=== PATIENT | female | born 1995 ===

== ENCOUNTER 2016-11-07 14:15 | Emergency (ER) | payer OTHER ==
[2016-11-07 14:16] VITALS: BMI 26.7
[2016-11-07 14:23] VITALS: BP 112/74; PULSE 79; RESP 18; TEMP 98.2; O2SAT 99
[2016-11-07 15:17] LABS: RBC URINE 21 /hpf (0-3); URINE BACTERIA RARE (<OCC); URINE BILIRUBIN NEGATIVE (NEGATIVE); URINE BLOOD 3+ (NEGATIVE); URINE COLOR Yellow (YELLOW); URINE GLUCOSE (UA) NORMAL (Normal); URINE KETONE NEGATIVE (NEGATIVE); URINE LEUKOCYTE ESTERASE TRACE Leu/uL (Negative); URINE PROTEIN NEGATIVE (NEGATIVE); URINE UROBILINOGEN NORMAL mg/dL (0.2-1.0); WBC URINE 1 /hpf (0-5)
--- NOTE | 2016-11-07 17:16 | C.PDOC ---
History Of Present Illness 21 year old female, with a Hx of UTI, presents to the ED c/o orange discharge that she feels is urinary in nature and suprapubic pain since yesterday. Patient denies nausea, vomiting, fever, chills, vaginal bleeding, or any other complaints. Chief Complaint (Nursing): Female Genitourinary History Per: Patient History/Exam Limitations: no limitations Onset/Duration Of Symptoms: Days Current Symptoms Are (Timing): Still Present Severity: Mild Associated Symptoms: denies: Fever, Chills, Nausea, Vomiting Past Medical History Reviewed: Historical Data, Nursing Documentation, Vital Signs Vital Signs: Last Vital Signs Temp 98.2 F 11/07/16 14:20 Pulse 79 11/07/16 14:20 Resp 18 11/07/16 14:20 BP 112/74 11/07/16 14:20 Pulse Ox 99 11/07/16 17:30 - Medical History PMH: Asthma Family History: States: Unknown Family Hx - Social History Hx Tobacco Use: No Hx Alcohol Use: Yes Hx Substance Use: No - Immunization History Hx Tetanus Toxoid Vaccination: Yes Hx Influenza Vaccination: Yes Hx Pneumococcal Vaccination: No Review Of Systems Except As Marked, All Systems Reviewed And Found Negative. Constitutional: Negative for: Fever, Chills Gastrointestinal: Negative for: Nausea, Vomiting Genitourinary: Positive for: Vaginal Discharge ([place] discharge), Other ( Suprapubic pain). Negative for: Vaginal Bleeding Physical Exam - Physical Exam Appears: Non-toxic, No Acute Distress Skin: Warm, Dry Head: Atraumatic, Normacephalic Eye(s): bilateral: Normal Inspection Throat: Normal, No Exudate Cardiovascular: Rhythm Regular, No Murmur Respiratory: Normal Breath Sounds, No Rales, No Rhonchi, No Wheezing Gastrointestinal/Abdominal: Soft, Tenderness (Mild suprapubic area tenderness) Neurological/Psych: Oriented x3, Normal Speech, Normal Cognition ED Course And Treatment O2 Sat by Pulse Oximetry: 99 (Room air) Pulse Ox Interpretation: Normal Medical Decision Making Medical Decision Making: Plans: -Urine labs -Reassess and disposition On reassessment, patient is resting comfortably, and is in no acute distress. Patient was instructed to follow up with physician/clinic in 1-2 days for further evaluation. Disposition - Disposition Referrals: [facility] Hali Otero, [Non-Staff] - Disposition: HOME/ ROUTINE Disposition Time: 15:40 Condition: GOOD Additional Instructions: Thank you for letting us take care of you today. Your provider was Dr. Matthews. You were treated for a urinary tract infection. The emergency medical care you received today was directed at your acute symptoms. If you were prescribed any medication, please fill it and take as directed. It may take several days for your symptoms to resolve. Return to the Emergency Department if your symptoms worsen, do not improve, or if you have any other problems. Please contact your doctor or call one of the physicians/clinics you have been referred to that are listed on the Patient Visit Information form that is included in your discharge packet. Bring any paperwork you were given at discharge with you along with any medications you are taking to your follow up visit. Our treatment cannot replace ongoing medical care by a primary care provider (PCP) outside of the emergency department. Thank you for allowing the [facility] team to be part of your care today. Follow up with your doctor in 3-4 days to be re-evaluated. Prescriptions: Sulfamethoxazole/Trimethoprim [Bactrim DS 800 mg-160 mg] 1 tab PO BID #14 tab Instructions: Urinary Tract Infection in Women (ED) - Clinical Impression Clinical Impression: Cystitis - Scribe Statement The provider has reviewed the documentation as recorded by the Scribe Kingston alcantara All medical record entries made by the Samibnova were at my direction and personally dictated by me. I have reviewed the chart and agree that the record accurately reflects my personal performance of the history, physical exam, medical decision making, and the department course for this patient. I have also personally directed, reviewed, and agree with the discharge instructions and disposition.
== END 2016-11-07 17:00 | disposition home or self-care (01) ==
LOC: C.ER 14:15
DX: N30.90 Cystitis, unspecified without hematuria (principal)

== ENCOUNTER 2016-11-17 12:02 | Emergency (ER) | payer OTHER ==
[2016-11-17 12:02] VITALS: BMI 26.7
[2016-11-17 12:07] VITALS: TEMP 99.4; O2SAT 99
--- NOTE | 2016-11-17 12:16 | C.PDOC ---
History Of Present Illness 21F c/o diffuse rash that started yesterday on her chest then spread to her arms and legs. also c/o painful glands in her neck and not feeling well in general also since yesterday. subjective fever and chills. imms UTD. she finished taking bactrim several days ago for a UTI. Time Seen by Provider: 11/17/16 12:14 Chief Complaint (Nursing): Abnormal Skin Integrity Past Medical History Vital Signs: Last Vital Signs Temp 99.4 F 11/17/16 12:05 Pulse 89 11/17/16 12:05 Resp 18 11/17/16 12:05 BP 114/76 11/17/16 12:05 Pulse Ox 99 11/17/16 12:47 - Medical History PMH: Asthma Family History: States: Unknown Family Hx - Social History Hx Tobacco Use: No Hx Alcohol Use: Yes Hx Substance Use: No - Immunization History Hx Tetanus Toxoid Vaccination: Yes Hx Influenza Vaccination: Yes Hx Pneumococcal Vaccination: No Review Of Systems Constitutional: Positive for: Fever, Chills, Malaise Eyes: Negative for: Conjunctivae Inflammation Cardiovascular: Negative for: Chest Pain Respiratory: Negative for: Cough, Shortness of Breath Gastrointestinal: Negative for: Nausea, Vomiting, Abdominal Pain Genitourinary: Negative for: Dysuria Skin: Positive for: Rash Neurological: Negative for: Headache Physical Exam - Physical Exam Appears: Well, Non-toxic, No Acute Distress Skin: Rash (blancheable morbilliform rash on torso and extremities. spares face , head, palms, soles. ) Head: Atraumatic Eye(s): bilateral: PERRL, EOMI Oral Mucosa: Other (no lesions) Tongue: No Swelling, No Lesions, No Erythema Lips: No Swelling, No Lesions, No Erythema Gingiva: No Erythema, No Ulceration, No Swelling Neck: Normal ROM, Other (tender anterior cervical LNs) Cardiovascular: Rhythm Regular Respiratory: Normal Breath Sounds, No Decreased Breath Sounds, No Accessory Muscle Use, No Rales, No Rhonchi, No Wheezing Gastrointestinal/Abdominal: Soft, No Tenderness, No Distention, No Guarding, No Rebound Extremity: No Swelling Neurological/Psych: Oriented x3, Other (no focal deficits) ED Course And Treatment - Laboratory Results Result Diagrams: 11/17/16 13:02 11/17/16 13:02 O2 Sat by Pulse Oximetry: 99 Medical Decision Making Medical Decision Making: diff dx: viral exanthem, drug rash from bactrim, other 1400 pt updated on results. disc impression and differential dx. follow up and return precautions advised. she is resting comfortably in no distress and comfortable w plan. all questions and concerns addressed at this time. Disposition - Disposition Disposition: HOME/ ROUTINE Disposition Time: 14:03 Condition: STABLE - Clinical Impression Clinical Impression: Rash
[2016-11-17 13:05] LABS: BASO % 0.3 % (0.0-2.0); EOS # 0.3 K/uL (0.0-0.7); HEMATOCRIT 38.1 % (34.0-47.0); LYMPH # 0.3 K/uL (1.0-4.3); LYMPH % 4.8 % (20.0-40.0); MEAN CELL VOLUME 89.5 fL (81.0-99.0); MEAN CORPUSCULAR HEMOGLOBIN 29.9 pg (27.0-31.0); MEAN CORPUSCULAR HGB CONC 33.4 g/dL (33.0-37.0); MEAN PLATELET VOLUME 9.6 fL (7.2-11.7); MONO # 0.2 K/uL (0.0-0.8); NRBC % 0.1 % (0.0-2.0); PLATELET COUNT 173 K/uL (130-400); WHITE BLOOD COUNT 6.2 K/uL (4.8-10.8)
[2016-11-17 13:29] LABS: CHLORIDE 90 mmol/L (98-107); SODIUM 132 mmol/L (132-148)
[2016-11-17 13:30] LABS: POTASSIUM 4.1 mmol/L (3.6-5.2)
[2016-11-17 13:32] LABS: ALB/GLOB RATIO 1.4 (1.0-2.1); ALKALINE PHOSPHATASE 34 U/L (38-126); ALT/SGPT 37 U/L (9-52); AST/SGOT 30 U/L (14-36); BILIRUBIN,TOTAL 0.4 mg/dL (0.2-1.3); BLOOD UREA NITROGEN 9 mg/dL (7-17); CARBON DIOXIDE 22 mmol/L (22-30); GFR AFRICAN-AMERICAN > 60; GLUCOSE,RANDOM 103 mg/dL (65-105); TOTAL PROTEIN 6.4 g/dL (6.3-8.3)
[2016-11-17 13:33] LABS: CALCIUM 7.9 mg/dl (8.6-10.4)
[2016-11-17 14:07] LABS: EOSINOPHIL 3 % (0-4); NEUTROPHIL 90 % (50-75); TOTAL CELLS COUNTED 100
[2016-11-17 14:58] VITALS: BP 116/68; PULSE 88; RESP 20
== END 2016-11-17 14:10 | disposition home or self-care (01) ==
LOC: C.ER 12:02
DX: R21 Rash and other nonspecific skin eruption (principal)

== ENCOUNTER 2016-12-02 14:35 | Emergency (ER) | payer OTHER ==
[2016-12-02 14:36] VITALS: BMI 26.7
[2016-12-02 14:44] VITALS: BP 116/70; PULSE 71; RESP 18; TEMP 98.3; O2SAT 100
--- NOTE | 2016-12-02 15:05 | C.PDOC ---
History Of Present Illness TIGHT RING ON L THUMB SINCE LAST NIGHT. PS UNABLE TO REMOVE PAST KNUCKLE. + SWELLING, DISCOLORATION NOW IMPROVED. EXAM EXT L THUMB +RING ON L THUMB. NON CONSTRICTED AT BASE OF THUMB, UNABLE REMOVE PAST DIP. MIN LOCAL SWELL. NO CYANOSIS Time Seen by Provider: 12/02/16 14:48 Chief Complaint (Nursing): Finger,Hand,&Wrist History Per: Patient Onset/Duration Of Symptoms: Hrs Current Symptoms Are (Timing): Still Present Past Medical History Reviewed: Historical Data, Nursing Documentation, Vital Signs Vital Signs: Last Vital Signs Temp 98.3 F 12/02/16 14:43 Pulse 71 12/02/16 14:43 Resp 18 12/02/16 14:43 BP 116/70 12/02/16 14:43 Pulse Ox 100 12/02/16 15:15 - Medical History PMH: Asthma Family History: States: No Known Family Hx - Social History Hx Tobacco Use: No Hx Alcohol Use: Yes Hx Substance Use: No - Immunization History Hx Tetanus Toxoid Vaccination: Yes Hx Influenza Vaccination: Yes Hx Pneumococcal Vaccination: No Review Of Systems Except As Marked, All Systems Reviewed And Found Negative. Constitutional: Negative for: Fever Gastrointestinal: Negative for: Nausea, Vomiting Musculoskeletal: Positive for: Other (ring stuck on left thumb) Physical Exam - Physical Exam Skin: Warm, Dry, No Rash, No Cyanotic Eye(s): bilateral: Normal Inspection Nose: Normal Oral Mucosa: Moist Lips: Normal Appearing Neck: Normal ROM Respiratory: No Accessory Muscle Use Extremity: Other (EXT L THUMB +RING ON L THUMB. NON CONSTRICTED AT BASE OF THUMB , UNABLE REMOVE PAST DIP. MIN LOCAL SWELL. NO CYANOSIS) Neurological/Psych: Oriented x3 ED Course And Treatment O2 Sat by Pulse Oximetry: 100 Disposition Counseled Patient/Family Regarding: Diagnosis, Need For Followup - Disposition Referrals: YOUR,PMD [Other] Disposition: HOME/ ROUTINE Disposition Time: 15:09 Condition: IMPROVED Additional Instructions: ICE TO AFFECTED AREA. MOTRIN DIRECTED, NEEDED FOR PAIN Forms: Work Excuse - Clinical Impression Clinical Impression: Tight ring on finger - Scribe Statement The provider has reviewed the documentation as recorded by the Mike Momin All medical record entries made by the Samibnova were at my direction and personally dictated by me. I have reviewed the chart and agree that the record accurately reflects my personal performance of the history, physical exam, medical decision making, and the department course for this patient. I have also personally directed, reviewed, and agree with the discharge instructions and disposition. PROCEDURES - Foreign Body Removal Consent Obtained: verbal consent Time Out Performed: Yes Site: other (THUMB) Description of foreign body: other (FINGER RING) Sedation/Analgesia: none Technique: other (GEM RING CUTTER) Confirmed by:: direct visualization Complications:: None Neurovascular: Normal distal pulse, Normal capillary, Distal light touch sensation intact, Distal motor function normal, No change from pre-procedure
== END 2016-12-02 15:19 | disposition home or self-care (01) ==
LOC: C.ER 14:35
DX: S60.342A External constriction of left thumb, initial encounter (principal); W49.04XA Ring or other jewelry causing external constriction, initial encounter

== ENCOUNTER 2017-03-27 11:12 | Emergency (ER) | payer OTHER ==
[2017-03-27 11:12] VITALS: BMI 26.7
[2017-03-27 11:20] VITALS: BP 111/74; PULSE 66; RESP 20; TEMP 98.4; O2SAT 100
--- NOTE | 2017-03-27 11:46 | C.PDOC ---
History Of Present Illness 21 y/o female presents to the ED for evaluation of and itchy rash to her arm which began around 3 days ago. Patient states the rash initially began on her right upper arm, but has been spreading to her right forearm. 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 Patient denies fever, chills, trouble breathing, throat swelling sensation, trouble swallowing, or pain. Time Seen by Provider: 03/27/17 11:33 Chief Complaint (Nursing): Abnormal Skin Integrity History Per: Patient History/Exam Limitations: no limitations Current Symptoms Are (Timing): Still Present Past Medical History Vital Signs: Last Vital Signs Temp 98.4 F 03/27/17 11:17 Pulse 66 03/27/17 11:17 Resp 20 03/27/17 11:17 BP 111/74 03/27/17 11:17 Pulse Ox 100 03/27/17 13:48 - Medical History PMH: Asthma Family History: States: Unknown Family Hx - Social History Hx Tobacco Use: No Hx Alcohol Use: Yes Hx Substance Use: No - Immunization History Hx Tetanus Toxoid Vaccination: Yes Hx Influenza Vaccination: Yes Hx Pneumococcal Vaccination: No Review Of Systems ENT: Negative for: Throat Swelling Respiratory: Negative for: Cough, Shortness of Breath Skin: Positive for: Rash (itchy, to right arm ) Physical Exam - Physical Exam Appears: Non-toxic, No Acute Distress Skin: Warm, Dry, Rash (1cm erythematous plaque to right forearm that is slightly scaly with no raised border. three erythematous plaques on right forearm slightly smaller in size. ) Eye(s): bilateral: Normal Inspection Oral Mucosa: Moist Neck: Supple Chest: Symmetrical Cardiovascular: Rhythm Regular, No Murmur Respiratory: Normal Breath Sounds, No Rales, No Rhonchi, No Wheezing Extremity: Normal ROM, Capillary Refill (less than 2 seconds ) Neurological/Psych: Normal Speech, Normal Cognition Gait: Steady ED Course And Treatment O2 Sat by Pulse Oximetry: 100 (on RA) Pulse Ox Interpretation: Normal Progress Note: Presentation of symptoms is more consistent with eczema-like lesions. Patient is resting comfortably, showing no signs of distress and is stable for discharge. Patient will receive Rx for Triamcinolone and is advised to follow up with a fundraising coordinator within 1-2 days for further evaluation. Disposition - Disposition Disposition: HOME/ ROUTINE Disposition Time: :55 Condition: STABLE Additional Instructions: Follow up with PMD and fundraising coordinator within 2-3 days. Return to Ed if feel worse. Prescriptions: Triamcinolone 0.25% [Triamcinolone Acetonide] 1 appl TP BID #30 g Instructions: Dermatitis (ED) Forms: [employer] ([employer]) Connect (Hebrew) - Clinical Impression Clinical Impression: Eczema - PA / VENDOR MANAGER / Resident Statement MD/DO has reviewed & agrees with the documentation as recorded. - Scribe Statement The provider has reviewed the documentation as recorded by the Scribe (Louann Parsons) All medical record entries made by the Scribe were at my direction and personally dictated by me. I have reviewed the chart and agree that the record accurately reflects my personal performance of the history, physical exam, medical decision making, and the department course for this patient. I have also personally directed, reviewed, and agree with the discharge instructions and disposition.
== END 2017-03-27 12:04 | disposition home or self-care (01) ==
LOC: C.ER 11:12
DX: L30.9 Dermatitis, unspecified (principal)

== ENCOUNTER 2017-08-23 07:40 | Day surgery (SDC) | payer OTHER ==
[2017-08-23 08:04] VITALS: BMI 26.4
[2017-08-23] MEDS ORDERED: Lactated Ringer's 500 ML IV SCH (09:15)
--- NOTE | 2017-08-23 09:23 | CP.SDSHP ---
Same Day Surgery H & P - History Proposed Procedure: colonoscopy Pre-Op Diagnosis: constipation - Previous Medical/Surgical History Pulmonary: Asthma - Allergies Allergies: Allergies sulfamethoxazole [From Bactrim] Allergy (Intermediate, Verified 08/23/17 08:04) URTICARIA trimethoprim [From Bactrim] Allergy (Verified 08/23/17 08:04) URTICARIA FRUITS Allergy (Uncoded 08/23/17 08:04) ANGIOEDEMA BLISTERS ON MY TONGUE PER PATIENT NUTS Allergy (Uncoded 08/23/17 08:04) ANGIOEDEMA BLISTERS ON MY TONGUE PER PATIENT - Physical Exam General Appearance: NAD Vital Signs: Vital Signs 08/23/17 08:05 Temperature 98.6 F Pulse Rate 80 Respiratory 20 Rate Blood Pressure 108/60 O2 Sat by Pulse 99 Oximetry Mental Status: Alert & Oriented x3 Neuro: WNL Heart: WNL Lungs: WNL GI: WNL - {Optional Preform as Required} Abdomen: WNL - Impression Pt. Evaluated Today:Candidate for Anesthesia & Procedure: Yes - Date & Time Date: 08/23/17 Time: 09:23 Short Stay Discharge - Short Stay Discharge Admitting Diagnosis/Reason for Visit: CONSTIPATION Disposition: HOME/ ROUTINE
[2017-08-23] MEDS ORDERED: Propofol 10 mg/ml Inj (20 ML) ONE (09:26)
[2017-08-23] MEDS ORDERED: Midazolam 2 MG/2 ML VIAL ONE (09:27)
[2017-08-23 13:57] VITALS: TEMP 98.1
[2017-08-23 14:05] VITALS: BP 100/67; PULSE 63; RESP 18; O2SAT 98
== END 2017-08-23 10:58 | disposition home or self-care (01) ==
LOC: C.ENDO 07:40
PROVIDERS: ATTEND Internal Medicine Gastroenterology
DX: K59.00 Constipation, unspecified (principal); K64.0 First degree hemorrhoids
CPT/HCPCS: 45378; 84703; J2250; J2704; J7120

== ENCOUNTER 2017-11-28 08:14 | Emergency (ER) | payer SELFPAY ==
[2017-11-28 08:14] VITALS: BMI 26.4
[2017-11-28 08:24] VITALS: BP 118/78; PULSE 89; RESP 18; TEMP 98.2; O2SAT 97
--- NOTE | 2017-11-28 08:43 | C.PDOC ---
History Of Present Illness 22-year-old female presents to the emergency department with complaints of one week duration of sore throat, cough, nasal congestion. Patient denies fever, nausea/vomiting, abdominal pain, rash, SOB or any other associated symptoms. Time Seen by Provider: 11/28/17 08:20 Chief Complaint (Nursing): Cough, Cold, Congestion History Per: Patient History/Exam Limitations: None Onset/Duration Of Symptoms: Days Current Symptoms Are (Timing): Still Present Symptoms Have Been: Continuous Severity: None Past Medical History Reviewed: Historical Data, Nursing Documentation, Vital Signs Vital Signs: Last Vital Signs Temp 98.2 F 11/28/17 08:22 Pulse 89 11/28/17 08:22 Resp 18 11/28/17 09:01 BP 118/78 11/28/17 08:22 Pulse Ox 97 11/28/17 09:43 - Medical History PMH: Asthma Family History: States: No Known Family Hx - Social History Hx Tobacco Use: No Hx Alcohol Use: Yes Hx Substance Use: No - Immunization History Hx Tetanus Toxoid Vaccination: Yes Hx Influenza Vaccination: Yes Hx Pneumococcal Vaccination: No Review Of Systems Constitutional: Negative for: Fever ENT: Positive for: Nose Congestion, Throat Pain Cardiovascular: Negative for: Chest Pain, Palpitations Respiratory: Positive for: Cough. Negative for: Shortness of Breath Gastrointestinal: Negative for: Nausea, Vomiting Musculoskeletal: Negative for: Back Pain Skin: Negative for: Rash Physical Exam - Physical Exam Appears: Well, Non-toxic, No Acute Distress Skin: Normal Color, Warm, Dry, No Rash Eye(s): bilateral: Normal Inspection Oral Mucosa: Moist Throat: Normal, No Erythema, No Exudate Neck: Normal, Normal ROM Cardiovascular: Rhythm Regular, No Murmur Respiratory: Normal Breath Sounds, No Rales, No Rhonchi, No Wheezing Extremity: Normal ROM Neurological/Psych: Oriented x3 ED Course And Treatment O2 Sat by Pulse Oximetry: 97 (RA) Pulse Ox Interpretation: Normal Progress Note: Symptoms consistent with viral URI. Patient given PO Tessalon and Sudafed in ED, as well as Rxs for same. She was instructed to follow up with PMD/clinic in 1-2 days, and understands she should return to ED if symptoms worsen. Reassessment Condition: Improved Disposition Counseled Patient/Family Regarding: Diagnosis, Need For Followup - Disposition Referrals: [facility] [Outside] Disposition: HOME/ ROUTINE Disposition Time: 08:50 Condition: STABLE Additional Instructions: FOLLOW UP WITH YOUR DOCTOR IN 1-2 DAYS USE MEDICATIONS NEEDED DRINK PLENTY OF FLUIDS RETURN TO ER IF SYMPTOMS WORSEN Prescriptions: Benzonatate [Tessalon Perles] 100 mg PO BID PRN #15 sgl PRN Reason: Cough Pseudoephedrine [Sudafed] 60 mg PO Q6 PRN #12 tab PRN Reason: Nasal Congestion Instructions: Viral Upper Respiratory Infection, Adult (DC) Forms: [employer] (Lebanese) Print Language: ARABIC - Clinical Impression Clinical Impression: Viral disease, Upper respiratory infection - Scribe Statement The provider has reviewed the documentation as recorded by the Scribe (Aspen Momin) All medical record entries made by the Scribe were at my direction and personally dictated by me. I have reviewed the chart and agree that the record accurately reflects my personal performance of the history, physical exam, medical decision making, and the department course for this patient. I have also personally directed, reviewed, and agree with the discharge instructions and disposition.
== END 2017-11-28 09:02 | disposition home or self-care (01) ==
LOC: C.ER 08:14
DX: B34.9 Viral infection, unspecified (principal); J06.9 Acute upper respiratory infection, unspecified

== ENCOUNTER 2018-03-14 13:35 | Emergency (ER) | payer BC ==
[2018-03-14 13:35] VITALS: BMI 26.4
[2018-03-14 13:45] VITALS: BP 123/72; PULSE 89; RESP 18; TEMP 99.4; O2SAT 98
--- NOTE | 2018-03-14 16:12 | C.PDOC ---
History Of Present Illness 22 y/o female presents to the ED complaining of neck spasms since this morning. According to the patient, she turned her neck suddenly and it became painful. She reports going to a massage therapist earlier today who used heating therapy that made the pain worse. The patient denies any tingling that extend to the arm. Time Seen by Provider: 03/14/18 13:40 Chief Complaint (Nursing): Upper Extremity Problem/Injury History Per: Patient History/Exam Limitations: no limitations Onset/Duration Of Symptoms: Hrs Current Symptoms Are (Timing): Still Present Quality: "Pain" Exacerbating Factor(s): Movement Recent travel outside of the [facility]: No Past Medical History Reviewed: Historical Data, Nursing Documentation, Vital Signs Vital Signs: Last Vital Signs Temp 99.4 F 03/14/18 13:43 Pulse 89 03/14/18 13:43 Resp 18 03/14/18 13:43 BP 123/72 03/14/18 13:43 Pulse Ox 98 03/14/18 16:19 - Medical History PMH: Asthma Denies: Fractures, Chronic Kidney Disease Other Surgeries: Cyst removed from left hand Family History: States: Unknown Family Hx - Social History Hx Tobacco Use: No Hx Alcohol Use: Yes Hx Substance Use: No - Immunization History Hx Tetanus Toxoid Vaccination: Yes Hx Influenza Vaccination: Yes Hx Pneumococcal Vaccination: No Review Of Systems Except As Marked, All Systems Reviewed And Found Negative. Constitutional: Negative for: Fever Musculoskeletal: Positive for: Neck Pain. Negative for: Shoulder Pain, Arm Pain Physical Exam - Physical Exam Appears: Well, Non-toxic, Toxic Skin: Normal Color, Warm, Dry Head: Atraumatic, Normacephalic Eye(s): bilateral: PERRL, EOMI Ear(s): Bilateral: Normal Oral Mucosa: Moist Neck: Decreased ROM, Other (hypersensitivity of right trapezius) Chest: Symmetrical Cardiovascular: Rhythm Regular, No Murmur Respiratory: No Accessory Muscle Use, No Rales, No Rhonchi, No Wheezing Back: Normal Inspection Extremity: Bilateral: Normal Color And Temperature, Normal ROM Pulses: Left Radial: Normal, Right Radial: Normal Neurological/Psych: Oriented x3, Normal Speech ED Course And Treatment O2 Sat by Pulse Oximetry: 98 (RA) Pulse Ox Interpretation: Normal Medical Decision Making Medical Decision Making: Impression: 25 y/o female c/o of neck spasms Plan: -Toradol 60 mg IM -Flexeril 10 mg PO Disposition - Disposition Referrals: [facility] Hali Otero, [Non-Staff] - Disposition: HOME/ ROUTINE Disposition Time: 14:50 Condition: IMPROVED Additional Instructions: KEV PAN, thank you for letting us take care of you today. Your provider was Andreas Matthews DO and you were treated for NECK PAIN. The emergency medical care you received today was directed at your acute symptoms. If you were prescribed any medication, please fill it and take as directed. It may take several days for your symptoms to resolve. Return to the Emergency Department if your symptoms worsen, do not improve, or if you have any other problems. Please contact your doctor or call one of the physicians/clinics you have been referred to that are listed on the Patient Visit Information form that is included in your discharge packet. Bring any paperwork you were given at discharge with you along with any medications you are taking to your follow up visit. Our treatment cannot replace ongoing medical care by a primary care provider outside of the emergency department. Thank you for allowing the [facility] team to be part of your care today. Ice area for the next 2-3 days. Follow up with your doctor if you have any concerns. Prescriptions: Cyclobenzaprine [Cyclobenzaprine HCl] 10 mg PO Q8 PRN #20 tab PRN Reason: Muscle Spasm Ibuprofen [Motrin] 600 mg PO Q6 PRN #20 tab PRN Reason: Pain, Moderate (4-7) Instructions: Cervical Muscle Strain (DC) Forms: [employer] (Estonian), Work Excuse - Clinical Impression Clinical Impression: Neck strain - PA / SENIOR TELECOMMUNICATIONS CONSULTANT / Resident Statement / has reviewed & agrees with the documentation as recorded. - Scribe Statement The provider has reviewed the documentation as recorded by the Scribe (Shannan Palomo) Provider Attestation: All medical record entries made by the Scribe were at my direction and personally dictated by me. I have reviewed the chart and agree that the record accurately reflects my personal performance of the history, physical exam, medical decision making, and the department course for this patient. I have also personally directed, reviewed, and agree with the discharge instructions and disposition.
== END 2018-03-14 14:59 | disposition home or self-care (01) ==
LOC: C.ER 13:35
DX: S16.1XXA Strain of muscle, fascia and tendon at neck level, initial encounter (principal); X58.XXXA Exposure to other specified factors, initial encounter
CPT/HCPCS: 96372; 99284; J1885